=== PATIENT | female | born 1955 | race Caucasian/White ===

== ENCOUNTER 2022-03-19 16:43 | Emergency (ER) | payer MEDICARE, BC ==
[~2022-03-19] VITALS: Ht 157.5 cm; Wt 49.4 kg
--- NOTE | 2022-03-19 16:50 | NUR ---
BIBS C/O NAUSEA ND VOMITING SINCE 1300 TODAY AND HAD A SYNCOPAL EPISODE AND FEELING WEAK SINCE FRIDAY -LOC. AMBULATORY, PLACED IN BED.
--- NOTE | 2022-03-19 17:30 | NUR ---
[employer] AT BEDSIDE
--- NOTE | 2022-03-19 17:48 | NUR ---
URINE SAMPLE SENT TO LAB
[2022-03-19 18:04] LABS: BILIRUBIN,URINE NEGATIVE (NEGATIVE); COLOR,URINE YELLOW (YELLOW); LEUKOCYTE ESTERASE ,URINE NEGATIVE (NEGATIVE); NITRITE, URINE NEGATIVE (NEGATIVE); PH,URINE 5.5 (5.0-8.0); PROTEIN,URINE NEGATIVE (NEGATIVE); UGLUCOSE NEGATIVE (NEGATIVE); UROBILINOGEN,URINE 0.2 EU/dL (0.2)
[2022-03-19] MEDS ORDERED: IV NS 0.9% 1,000 ML BAG IV ONE (18:30)
[2022-03-19 18:31] LABS: ALBUMIN 3.6 g/dL (3.4-5.0); BILIRUBIN,DIRECT 0.2 mg/dL (0.0-0.2); BILIRUBIN,TOTAL 1.1 mg/dL (0.2-1.0); CALCIUM, SERUM 9.2 mg/dL (8.5-10.1); CREATININE 0.9 mg/dL (0.6-1.3); POTASSIUM 4.3 mmol/L (3.5-5.1); TOTAL PROTEIN, SERUM 7.6 g/dL (6.4-8.2)
[2022-03-19] MEDS ORDERED: KETOROLAC TROMETHAMINE INJ 30 MG/ML VIAL IV ONE (19:30)
[2022-03-19] MEDS ORDERED: METOCLOPRAMIDE HCL 10 MG/2 ML VIAL IV ONE (19:30)
[2022-03-19] MEDS ORDERED: KETOROLAC TROMETHAMINE 15 MG/ML VIAL ONE (19:36)
[2022-03-19] MEDS ORDERED: METOCLOPRAMIDE HCL 10 MG/2 ML VIAL ONE (19:36)
[2022-03-19] MEDS ORDERED: hydrALAZINE HCL IV 20 MG VIAL IV ONE (20:00)
[2022-03-19 20:07] LABS: HEMATOCRIT 38 % (33-45); HEMOGLOBIN 11.6 g/dL (11.5-14.8); LYMPHOCYTES # (AUTO) 1.1 K/uL (0.8-4.8); LYMPHOCYTES % (AUTO) 6.2 % (20.0-44.0); MEAN CORPUSCULAR HGB CONC 31 g/dl (31.0-36.0); MEAN CORPUSCULAR VOLUME 81 fL (82-100); MONOCYTES # (AUTO) 0.6 K/uL (0.1-1.30); MONOCYTES % (AUTO) 3.3 % (2.0-12.0); NEUTROPHILS # (AUTO) 15.7 K/uL (1.8-8.9); NEUTROPHILS % (AUTO) 90.5 % (43.0-81.0); PLATELET COUNT (AUTO) 348 K/uL (150-450); RED BLOOD CELL COUNT(AUTO) 4.62 MIL/uL (4.0-5.2); WHITE BLOOD COUNT (AUTO) 17.4 K/uL (4.3-11.0)
[2022-03-19 20:24] LABS: RBC,URINE 0-2 /HPF (0-2); WBC,URINE NONE SEEN /HPF (0-3)
[2022-03-19 20:25] LABS: BACTERIA,URINE Few /HPF (None Seen); SQUAMOUS EPITHELIAL CELL,UR Few /HPF (None Seen)
--- NOTE | 2022-03-19 20:50 | NUR ---
IV removed. Catheter intact and site benign. Pressure and 4x4 applied to site. No bleeding noted.Patient discharged to home in stable condition. Written and verbal after care instructions given. Patient verbalizes understanding of instruction.
[2022-03-19 20:51] VITALS: BP 105/65
== END 2022-03-19 20:50 | disposition home or self-care (01) ==
LOC: ER 16:47
DX: R55 Syncope and collapse (principal); R51.9 Headache, unspecified; R11.2 Nausea with vomiting, unspecified; D64.9 Anemia, unspecified
CPT/HCPCS: 99285; 96374; 70450; 96361; 96375; 93005; 85025; 80048; 83690; 80076; 81001; 36415; 84484; 83880; J2765; J1885

== ENCOUNTER 2023-07-24 18:15 | Emergency (ER) | payer MEDICARE, BC ==
[~2023-07-24] VITALS: Ht 157.5 cm; Wt 50.8 kg
[2023-07-24] MEDS: IV NS 0.9% 1,000 ML BAG IV ONE (18:52)
[2023-07-24 19:03] LABS: BASOPHILS % (AUTO) 0.3 % (0.0-2.0); EOSINOPHILS # (AUTO) 0.1 K/uL (0.0-0.7); EOSINOPHILS % (AUTO) 0.5 % (0.0-6.0); HEMATOCRIT 23 % (33-45); HEMOGLOBIN 7.4 g/dL (11.5-14.8); LYMPHOCYTES # (AUTO) 1.3 K/uL (0.8-4.8); LYMPHOCYTES % (AUTO) 11.9 % (20.0-44.0); MEAN CORPUSCULAR HEMOGLOBIN 30 PG (26.0-33.0); MEAN CORPUSCULAR HGB CONC 32 g/dl (31.0-36.0); MEAN CORPUSCULAR VOLUME 92 fL (82-100); MONOCYTES # (AUTO) 0.8 K/uL (0.1-1.30); MONOCYTES % (AUTO) 7.1 % (2.0-12.0); NEUTROPHILS % (AUTO) 80.2 % (43.0-81.0); PLATELET COUNT (AUTO) 397 K/uL (150-450); RED BLOOD CELL COUNT(AUTO) 2.51 MIL/uL (4.0-5.2); RED CELL DISTRIBUTION WIDTH 17.7 % (11.5-15.0); WHITE BLOOD COUNT (AUTO) 11.2 K/uL (4.3-11.0)
[2023-07-24 19:34] LABS: CALCIUM, SERUM 8.8 mg/dL (8.5-10.1); CARBON DIOXIDE 24 mmol/L (21-32); CHLORIDE 103 mmol/L (98-107); CREATININE 0.7 mg/dL (0.6-1.3); GLUCOSE 99 mg/dL (74-106); POTASSIUM 3.4 mmol/L (3.5-5.1); SODIUM SERUM 140 mmol/L (136-145); UREA NITROGEN, BLOOD 16 mg/dL (7-18)
[2023-07-24 21:13] VITALS: BP 136/76; TEMP 98.8; O2SAT 0
== END 2023-07-24 21:14 | disposition home or self-care (01) ==
LOC: ER 18:21
DX: R55 Syncope and collapse (principal); E86.0 Dehydration; E87.6 Hypokalemia; D64.9 Anemia, unspecified; E78.5 Hyperlipidemia, unspecified
CPT/HCPCS: 99285; 96360; 71045; 93005; 85025; 80048; 36415; 84484; 82962; J7030

== ENCOUNTER 2025-01-12 17:54 | Emergency (ER) | payer MEDICARE, BC ==
[~2025-01-12] VITALS: Ht 157.5 cm; Wt 52.2 kg
[2025-01-12 19:17] LABS: PLATELET COUNT (AUTO) 321 K/uL (150-450); RED BLOOD CELL COUNT(AUTO) 4.93 MIL/uL (4.0-5.2); RED CELL DISTRIBUTION WIDTH 13.8 % (11.5-15.0); WHITE BLOOD COUNT (AUTO) 17.0 K/uL (4.3-11.0)
[2025-01-12 19:24] LABS: CALCIUM, SERUM 9.1 mg/dL (8.5-10.1); CREATININE 0.8 mg/dL (0.6-1.3); SODIUM SERUM 138.0 mmol/L (136-145); UREA NITROGEN, BLOOD 17.0 mg/dL (7-18)
[2025-01-12 19:25] LABS: APPEARANCE,URINE BLOODY (CLEAR)
[2025-01-12 19:41] LABS: SQUAMOUS EPITHELIAL CELL,UR Few /HPF (None Seen)
[2025-01-12 20:04] VITALS: BP 141/89; TEMP 98.8; O2SAT 99
== END 2025-01-12 20:04 | disposition home or self-care (01) ==
LOC: ER 18:15
DX: N93.9 Abnormal uterine and vaginal bleeding, unspecified (principal); I11.9 Hypertensive heart disease without heart failure; E78.5 Hyperlipidemia, unspecified; R31.0 Gross hematuria
CPT/HCPCS: 36415; 76856-TC; 80048-TC; 81001; 85025-TC